=== PATIENT | male | born 1945 | race Caucasian/White ===

== ENCOUNTER → 2020-08-12 | Outpatient (CLI) | payer OTHER ==
[~2020-08-12] MED LIST: GADOTERATE 10 MMOL/20 ML SYR ONE
== END | disposition home or self-care (01) ==
LOC: RAD 11:50
PROVIDERS: ATTEND Family Medicine
DX: I63.81 Other cerebral infarction due to occlusion or stenosis of small artery (principal); J34.89 Other specified disorders of nose and nasal sinuses; G43.909 Migraine, unspecified, not intractable, without status migrainosus
CPT/HCPCS: 70553; A9575

== ENCOUNTER 2021-01-29 09:23 | Outpatient (CLI) | payer OTHER | END 2021-01-29 23:59 | disposition home or self-care (01) | LOC: PETCFH 09:23 | DX: D38.3 Neoplasm of uncertain behavior of mediastinum (principal) | CPT/HCPCS: 78815; A9552 ==